=== PATIENT | female | born 2000 | race African-American/Black ===

== ENCOUNTER 2024-07-17 07:34 | Outpatient (CLI) | payer BC | END 2024-07-17 07:35 | disposition home or self-care (01) | LOC: NM 07:34 | PROVIDERS: ATTEND Internal Medicine Gastroenterology | DX: R11.2 Nausea with vomiting, unspecified (principal); K30 Functional dyspepsia | CPT/HCPCS: 78264; A9541 ==

== ENCOUNTER 2024-09-06 09:26 | Outpatient (CLI) | payer BC ==
[2024-09-06] MEDS ORDERED: E-Z-HD 98% W/W 340GM BOT (x-ray ONLY) ONE (09:40)
[2024-09-06] MEDS ORDERED: Barium Sulfate 96% 176 GM BOT (xray ONLY) ONE (09:40)
== END 2024-09-06 09:27 | disposition home or self-care (01) ==
LOC: RAD 09:26
PROVIDERS: ATTEND Specialist
DX: K21.9 Gastro-esophageal reflux disease without esophagitis (principal); K44.9 Diaphragmatic hernia without obstruction or gangrene
CPT/HCPCS: 74246